=== PATIENT | male | born 1975 | race Caucasian/White ===

== ENCOUNTER 2025-08-02 18:44 | Emergency (ER) | payer BC ==
[~2025-08-02] VITALS: Ht 165.1 cm; Wt 59.0 kg
[2025-08-02 19:30] VITALS: TEMP 98
[2025-08-02] MEDS: IV NS 0.9% 1,000 ML BAG IV ONE (19:35)
[2025-08-02 19:52] LABS: AMPHETAMINE, URINE NEGATIVE (NEGATIVE); BARBITURATE, URINE NEGATIVE (NEGATIVE); CANNABINOID, URINE NEGATIVE (NEGATIVE); COCCAINE, URINE NEGATIVE (NEGATIVE); OPIATE, URINE NEGATIVE (NEGATIVE)
[2025-08-02 19:54] LABS: BENZODIAZEPINE, URINE POSITIVE (NEGATIVE)
[2025-08-02 20:42] LABS: ALCOHOL, BLOOD < 3 mg/dL (0-10)
[2025-08-02 21:10] VITALS: BP 130/74; O2SAT 97
== END 2025-08-02 21:10 | disposition home or self-care (01) ==
LOC: ER 18:52
DX: Z00.8 Encounter for other general examination (principal); G47.00 Insomnia, unspecified; I10 Essential (primary) hypertension; J45.909 Unspecified asthma, uncomplicated; Z79.899 Other long term (current) drug therapy
CPT/HCPCS: 99283; 96360; 36415; 80143; 80320; 80307; J7030; G0480

== ENCOUNTER 2025-11-21 16:37 | Emergency (ER) | payer BC ==
[~2025-11-21] VITALS: Ht 167.6 cm; Wt 65.8 kg
[2025-11-21 18:19] LABS: PLATELET COUNT (AUTO) 112 K/uL (150-450); RED BLOOD CELL COUNT(AUTO) 4.93 MIL/uL (4.5-6.0); RED CELL DISTRIBUTION WIDTH 21.8 % (11.5-15.0); WHITE BLOOD COUNT (AUTO) 6.9 K/uL (4.3-11.0)
[2025-11-21 18:33] LABS: ASPARTATE AMINOTRANSFERASE 42.0 U/L (15-37); CALCIUM, SERUM 7.8 mg/dL (8.5-10.1); CREATININE 1.2 mg/dL (0.6-1.3); SODIUM SERUM 136.0 mmol/L (136-145); TOTAL PROTEIN, SERUM 6.0 g/dL (6.4-8.2); UREA NITROGEN, BLOOD 17.0 mg/dL (7-18)
[2025-11-21 20:54] VITALS: BP 132/76; TEMP 98.4; O2SAT 97
== END 2025-11-21 20:54 | disposition home or self-care (01) ==
LOC: ER 16:37
DX: R25.1 Tremor, unspecified (principal); R17 Unspecified jaundice; F14.10 Cocaine abuse, uncomplicated; I10 Essential (primary) hypertension; J45.909 Unspecified asthma, uncomplicated
CPT/HCPCS: 36415; 70450-TC; 80053-TC; 82247-TC; 82248-TC; 83690-TC; 83735-TC; 84484-TC; 85025-TC

== ENCOUNTER 2025-11-24 11:43 | Emergency (ER) | payer BC ==
[~2025-11-24] VITALS: Ht 167.6 cm; Wt 65.8 kg
[2025-11-24 11:56] VITALS: TEMP 98
[2025-11-24 13:54] VITALS: BP 130/85; O2SAT 97
== END 2025-11-24 13:45 | disposition home or self-care (01) ==
LOC: ER 11:58
DX: S93.601A Unspecified sprain of right foot, initial encounter (principal); J45.909 Unspecified asthma, uncomplicated; I10 Essential (primary) hypertension; F17.200 Nicotine dependence, unspecified, uncomplicated; X58.XXXA Exposure to other specified factors, initial encounter; Y93.89 Activity, other specified; Y92.89 Other specified places as the place of occurrence of the external cause; Y99.8 Other external cause status
CPT/HCPCS: 73610-TC; 73630-TC